=== PATIENT | male | born 1950 | race Caucasian/White ===

== ENCOUNTER 2019-05-16 14:26 | Inpatient (IN) ==
[2019-05-16] MEDS ORDERED: SODIUM CHLORIDE 0.9% 1000ML 1,000 ML IV SCH (14:45)
[2019-05-16 14:51] LABS: Basophils # (auto) 0.03 K/uL (0-0.2); Basophils % (auto) 0.3 %; Eosinophils # (auto) 0.09 K/uL (0-0.5); Eosinophils % (auto) 0.9 %; Hematocrit (blood only) 46.6 % (42-52); Hemoglobin 15.9 g/dL (14.0-18.0); Immature Granulocytes # (auto) 0.02 K/uL (0.00-0.02); Immature Granulocytes % (auto) 0.2 %; Lymphocytes # (auto) 1.72 K/uL (1.2-3.4); Lymphocytes % (auto) 17.2 %; Mean Corpuscular Hemoglobin 31.9 pg (25-34); Mean Corpuscular Hgb Conc 34.1 g/dL (32-36); Mean Corpuscular Volume 93.4 fL (80-100); Mean Platelet Volume 9.5 fL (7.4-10.4); Monocytes # (auto) 0.66 K/uL (0.11-0.59); Monocytes % (auto) 6.6 %; Neutrophils % (auto) 74.8 %; Platelet Count 200 K/uL (130-400); RDW Coefficient of Variation 13.2 % (11.5-14.5); RDW Standard Deviation 44.9 fL (36.4-46.3); Red Blood Count 4.99 M/uL (4.7-6.1); White Blood Count 10.02 K/uL (4.8-10.8)
[2019-05-16 15:00] LABS: INR 1.8 (0.9-1.1); Partial Thromboplastin Ratio 1.3; Partial Thromboplastin Time 35.1 Seconds (21.0-31.0); Prothrombin Time 17.3 Seconds (9.0-12.0)
--- NOTE | 2019-05-16 15:00 | XRay Report ---
XR chest 1V portable CLINICAL HISTORY: aphasia COMPARISON STUDY: Chest February 12, 2008. FINDINGS: Lung volumes are normal. There is no pneumothorax or pleural effusion. There is no evidence for pulmonary edema. Mild cardiomegaly is noted. Mediastinal widening is unchanged. Patient is rotat ed. There is mild lower lung interstitial thickening. This probably chronic. IMPRESSION: Mild lower lung interstitial thickening which is probably chronic. No definite acute fin dings. ACT 112: Negative or not required by law. Electronically signed by: Jairo Cobb M.D. 05/16/2019 2:58 PM
[2019-05-16] MEDS ORDERED: OPTIRAY 320 125ml IV PRN (15:01)
[2019-05-16 15:03] LABS: iSTAT Creatinine 1.6 mg/dl (0.6-1.3); iSTAT Hemoglobin 15.6 g/dl (14.0-18.0); iSTAT Ionized Calcium 1.16 mmol/l (1.12-1.32); iSTAT Potassium 4.4 mEq/L (3.3-5.0)
[2019-05-16 15:06] LABS: Alanine Aminotransferase 30 U/L (12-78); Albumin Level 4.3 gm/dl (3.4-5.0); Aspartate Aminotransferase 16 U/L (15-37); BUN Creatinine Ratio 11.4 (10-20); Blood Urea Nitrogen 18 mg/dl (7-18); Calcium 9.4 mg/dl (8.5-10.1); Carbon Dioxide 29 mmol/L (21-32); Chloride 106 mmol/L (98-107); Creatinine Clr Calc Pharmacy 62.5 ml/min; Est GFR (African American) 50.6; Est GFR (Non-African American) 43.7; Glucose 123 mg/dl (70-99); Magnesium 2.4 mg/dl (1.8-2.4); Potassium 4.5 mmol/L (3.5-5.1); Sodium 141 mmol/L (136-145)
[2019-05-16 15:11] LABS: Albumin Globulin Ratio 1.2 (0.9-2); Alkaline Phosphatase 106 U/L (45-117); Bilirubin,Total 0.7 mg/dl (0.2-1); Globulin 3.5 gm/dl (2.5-4.0); Total Protein 7.8 gm/dl (6.4-8.2); Troponin I < 0.015 ng/ml (0-0.045)
--- NOTE | 2019-05-16 15:19 | CT Scan Report ---
UNENHANCED CT OF THE BRAIN; CT ANGIOGRAM OF THE BRAIN; CT ANGIOGRAM OF THE NECK CLINICAL HISTORY: Strokelike symptoms. COMPARISON STUDY: No priors. TECHNIQUE: Unenhanced axial CT scan of the brain is performed. Subsequently, following the IV adminis tration of 115 of [address] 320, CT angiogram of the head and neck was performed from the aortic arch t o the vertex. Images are reviewed in the axial, sagittal, and coronal planes. 3-D MIPS images are cre ated and assessed. IV contrast was administered without complication. All measurements were calculate d based on NASCET criteria. A dose lowering technique was utilized adhering to the principles of ALA RA. CT DOSE: 1714.22 mGy.cm FINDINGS: Brain parenchyma: The brain parenchyma is normal in appearance. There is no hemorrhage, mass effect, or evidence of acute territorial ischemia by CT criteria. There is no evidence of enhancing mass lesi on on the angiogram phase images. The ventricles, sulci, and cisterns are normal in configuration. Gr ay-white matter differentiation is preserved. No extra-axial fluid collection is seen. Thoracic aorta: Visualized portions of the thoracic aorta are normal in caliber. The aortic arch demo nstrates standard 3-vessel anatomy. Right carotid arterial system: The right common carotid artery is widely patent. There is less than 5 0% luminal narrowing at the origin of the right internal carotid artery secondary to soft plaque. Rem ainder of the right internal carotid artery is patent, as is the right external carotid artery. Left carotid arterial system: The left common carotid artery is widely patent, as are the left healthcare administration internship al and external carotid arteries. Mild atherosclerotic plaque is noted in the carotid bulb. Vertebral arteries: There is high-grade stenosis at the origin of the right vertebral artery. The delbert tebral arteries are otherwise patent bilaterally. The left side is dominant. Subclavian arteries: Widely patent bilaterally. Intracranial vasculature: The internal carotid arteries are patent at the skull base, as are the ante rior and middle cerebral arteries bilaterally. The vertebrobasilar system and posterior cerebral alexis donald are widely patent. The vertebral arteries are codominant. There is no aneurysm, high-grade steno sis, or focal vessel cut off seen throughout the intracranial circulation. Jugular veins: Patent bilaterally. Dural sinuses: Patent. Lung apices: Partially visualized upper lobe lung parenchyma appears clear. Soft tissues: The visualized pharyngeal soft tissues are normal in appearance noting angiographic pha se technique. The oropharyngeal airway appears widely patent. The salivary and thyroid glands are nor mal in appearance. No cervical lymphadenopathy is seen. Skeletal structures: Skeletal structures are osteopenic. The calvarium appears intact. The cervical s pine is maintained noting multilevel spondylosis with calcification of the posterior longitudinal lig ament. No lytic or blastic lesion is identified. Sinuses and mastoids: The paranasal sinuses are clear. The mastoid air cells are well pneumatized. Soft tissues: A 1.8 cm sebaceous cyst is noted in the suboccipital scalp. IMPRESSION: 1. There is no hemorrhage, mass effect, or evidence of acute territorial ischemia by CT criteria. 2. Unremarkable CT angiogram of the brain. 3. There is high-grade stenosis at the origin of the right vertebral artery. The vertebral arteries a re otherwise patent bilaterally. 4. There is less than 50% stenosis at the origin of the right internal carotid artery secondary to so ft plaque. ACT 112: Negative or not required by law. Electronically signed by: Dax Acharya M.D. 05/16/2019 3:18 PM
--- NOTE | 2019-05-16 17:33 | History & Physical Report ---
Date of Service May 16, 2019 Assessment & Plan (1) Stroke-like symptoms: Pt is 69 y/o M with PMH HTN, obesity, recurrent PE on Coumadin, sleep apnea presented to ER with c/o 2 episodes of expressive aphasia, once occurring yesterday after workout and occurring today after workout lasting approx 1 hour. In ER vitals stable. No current symptoms. No significant electrolyte abnormality. CT HEAD, CTA HEAD, CTA NECK: 1. There is no hemorrhage, mass effect, or evidence of acute territorial ischemia by CT criteria. 2. Unremarkable CT angiogram of the brain. 3. There is high-grade stenosis at the origin of the right vertebral artery. The vertebral arteries are otherwise patent bilaterally. 4. There is less than 50% stenosis at the origin of the right internal carotid artery secondary to soft plaque. DDX: TIA, CVA -Tele to monitor for arrhythmias -Lipid panel, A1C, TSH in am -MRI brain -Echo with bubble study -PT/OT consult -Start statin -Currently on Coumadin. INR: 1.8. Adjust Coumadin and monitor INR -Neurology consult -Will defer starting aspirin to neurology since pt on Coumadin (2) Recurrent pulmonary embolism: On Coumadin. Last PE in 2007 and on Coumadin since INR: 1.8 -Adjust Coumadin accordingly -Monitor INR (3) HTN (hypertension): Stable -Continue enalapril (4) ASHUTOSH (obstructive sleep apnea): Not on CPAP DVT Prophylaxis -On Coumadin Full Code as per discussion with pt Follows with Dr Elver Canada for routine care Pt was seen and care coordinated with Dr Godinez. See addendum History of Present Illness Chief Complaint: Speech difficulty Primary Care Provider: Elver Canada DO Pt is 69 y/o M with PMH HTN, obesity, recurrent PE on Coumadin, sleep apnea presented to ER with c/o speech difficulty. Patient reports yesterday around noon he had difficulty with his speech. Reports went to the gym and walked 1.5 miles on treadmill and on his way home he was singing and had trouble speaking some words and trouble remembering song lyrics. This lasted approx 1 hour and self resolved. Denies any other associated symptoms. Today he also went to gym around and walked 2 miles on 2% incline on treadmill and finished around noon. Corinna fine during workout and without symptoms. States had another episode of speech difficulty today around 2 PM which lasted approximately 1 hour. Reports was reading a story to his and was noted to have trouble getting words out and some words were garbled. Also reports had headache around left orbit which has since resolved. States took two 81mg aspirin prior to ER arrival. Denies fever/chills, diaphoresis, N/V/D/C, dizziness, syncope, vision changes, neck pain, CP, SOB, orthopnea, palpitations, cough, sore throat, choking, otalgia, rhinorrhea, abdominal pain, paresthesias, weakness, extremity weakness, facial drooping, extremity edema, rashes, urinary symptoms. Allergies Allergy/AdvReac Type Severity Reaction Status Date / Time No Known Allergies Allergy Verified 05/16/19 15:32 Home Medications Home Medications Medication Instructions Recorded Confirmed Type enalapril maleate 20 mg PO QAM 05/16/19 05/16/19 History folic acid 400 mcg PO QAM 05/16/19 05/16/19 History latanoprost 1 drp OPB HS 05/16/19 05/16/19 History cyphwrabrxfq-rufkoieo-awyhfo 1 tab PO QAM 05/16/19 05/16/19 History [Multivitamin 50 Plus] warfarin See Rx Instructions .ROUTE .COMPLEX 05/16/19 05/16/19 History Past Med/Surg History Medical History (Updated 05/16/19 @ 17:48 by Vianey Kay PA-C) Chronic anticoagulation DVT (deep venous thrombosis) HTN (hypertension) Obesity ASHUTOSH (obstructive sleep apnea) Recurrent pulmonary embolism Surgical History (Updated 05/16/19 @ 18:05 by Vianey Kay PA-C) Hx of tonsillectomy S/P IVC filter Family History Other Family history non-contributory Social History (Updated 05/16/19 @ 17:42 by Vianey Kay PA-C) Preferred Language: Turkmen Communication Ability: Effective 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 Beliefs That Will Affect Care: None Current Living Situation: Spouse Other Information That Helps Us Care for You: No Feels Safe at Home: Yes Safety Concerns: Feels Safe At This Time Smoking Status: Former smoker Smoking End Date: 40 years ago ; Hx Alcohol Use: No Hx Substance Use: No Review of Systems Review of Systems: All systems reviewed & are unremarkable except as noted in HPI & below Physical Exam Physical Exam: General: no distress, overweight Head: normocephalic, atraumatic Eyes: PERRL, EOM's intact, no nystagmus, conjunctiva non-injected, anicteric ENT: normal inspection external ears, nose, mucous membranes moist Neck: supple, trachea midline, non-tender Lungs: clear, no respiratory distress, no wheezing/rhonchi/rales CV: RRR, no murmur, no JVD, no pretibial edema Abd: normal BS, soft, non-tender Ext: no cyanosis, no calf tenderness Neuro: A&O x 3, normal affect, Facial sensation is intact and symmetric, face is strong and symmetric, Hearing grossly intact, Soft palate elevates symmetrically, no dysarthria, Shoulder shrug intact, Tongue is midline, normal movement, no fasciculations. Muscle tone normal. Strength 5/5 throughout Skin: warm, dry Results & Data Vital Signs (Past 12 Hours) Vital Signs Temp Pulse Pulse Resp BP BP Pulse Ox 05/16/19 16:01 83 15 97 05/16/19 16:00 83 15 135/67 96 05/16/19 15:31 79 13 95 05/16/19 15:30 81 12 134/71 93 05/16/19 15:27 84 20 139/72 96 05/16/19 15:25 81 18 139/72 96 05/16/19 15:09 83 22 97 05/16/19 14:46 87 16 96 05/16/19 14:43 87 18 166/73 H 96 05/16/19 14:29 36.7 C 95 H 20 173/90 H 96 Laboratory Results Short CBC 05/16/19 05/16/19 Range/Units Unknown Unknown WBC 10.02 (4.8-10.8) K/uL Hgb 15.9 (14.0-18.0) g/dL Hct 46.6 (42-52) % Plt Count 200 (130-400) K/uL Glucose 123 H (70-99) mg/dl BMP 05/16/19 Unknown Sodium 141 Potassium 4.5 Chloride 106 Carbon Dioxide 29 BUN 18 Creatinine 1.58 H Glucose 123 H Calcium 9.4 Cardiac Enzymes 05/16/19 Range/Units Unknown Troponin I < 0.015 (0-0.045) ng/ml Liver Function 05/16/19 Range/Units Unknown Total Bilirubin 0.7 (0.2-1) mg/dl AST 16 (15-37) U/L ALT 30 (12-78) U/L Alkaline Phosphatase 106 (45-117) U/L Albumin 4.3 (3.4-5.0) gm/dl Diagnostic Findings CT HEAD, CTA HEAD, CTA NECK: IMPRESSION: 1. There is no hemorrhage, mass effect, or evidence of acute territorial ischemia by CT criteria. 2. Unremarkable CT angiogram of the brain. 3. There is high-grade stenosis at the origin of the right vertebral artery. The vertebral arteries are otherwise patent bilaterally. 4. There is less than 50% stenosis at the origin of the right internal carotid artery secondary to soft plaque. CXR: IMPRESSION: Mild lower lung interstitial thickening which is probably chronic. No definite acute findings. ECG Additional Comments: Read by cardiology: Poor data quality, interpretation may be adversely affected Normal sinus rhythm Left axis deviation Non-specific intra-ventricular conduction delay Abnormal ECG When compared with ECG of 12-FEB-2008 07:06, QRS duration has increased T wave inversion no longer evident in Inferior leads Confirmed by Arron Lynn ([id number]) on 05/16/2019 3:16:10 PM Code Status & VTE Plan VTE Prophylaxis Plan VTE Prophylaxis will be ordered: Yes Supervising Physician Co-Signing Physician Notes Pt was seen and examined. Agreed with Vianey BRADLEY exam, assessment and plan. 69 y/o M with PMH HTN, obesity, recurrent PE on Coumadin, sleep apnea presented to ER with c/o speech difficulty. Pt said that yesterday while coming from the Gym, he said that he could not remember the oscar of a song that he knew very well, then he developed difficulty to speak where he was not able to express himself. He said that today he had the similar symptoms today. Denies any numbne ss, weakness, blurry vision, chest pain and SOB. CT head and CTA head/brain done in the ER showed no hemorrhage, mass effect, or evidence of acute territorial ischemia; high-grade stenosis at the origin of the right vertebral artery. INR 1.8 today. Denies missing any coumadin dose. Will get a MRI of the brain. Will consult neurology. PT/OT eval. Will get an ECHO. Continue neuro check. Will monitor closely. MD Herbert
--- NOTE | 2019-05-16 17:41 | Emergency Department Note ---
Entered by Jake Ardon acting as a scribe for Mike Tavera DO History of Present Illness General Chief complaint: Stroke/CVA Symptoms Stated complaint: TROUBLE SPEAKING, WORRIED ABOUT STROKE Time Seen by Provider: 05/16/19 14:35 Source: patient History of Present Illness Provider complaint: Speech impairments Onset (ago): day(s) 1 Location: head Pain Consistency: + intermittent Maximum Pain Intensity: 2 Current Pain Intensity: 2 Relieved By: + none Associated symptoms: + headaches The patient is a 69 year old male who presents to the Emergency Room with complaints of intermittent speech impairment that first occurred yesterday around lunch time. The patient reports he had trouble saying the words that he was reading and after about an hour or two it resolved. The patient adds that today around lunch time he developed a headache behind his left eye and started to have similar speech difficulties as yesterday. The patient currently still has a slight headache which he rates a 2/10. Per his , the patient's speech is close to baseline but slightly slower. The patient relates that he has never had symptoms like this before. The patient has no ambulatory difficulties and was able to go to the gym this morning. The patient mentioned that prior to arrival he took 2 baby aspirin. The patient is on Coumadin for a history of DVT. Home Medications Home Medications Medication Instructions Recorded Confirmed Type enalapril maleate 20 mg PO QAM 05/16/19 05/16/19 History folic acid 400 mcg PO QAM 05/16/19 05/16/19 History latanoprost 1 drp OPB HS 05/16/19 05/16/19 History kowkmkduqnvf-exbalhgo-anszpn 1 tab PO QAM 05/16/19 05/16/19 History [Multivitamin 50 Plus] warfarin See Rx Instructions .ROUTE .COMPLEX 05/16/19 05/16/19 History Allergies Allergy/AdvReac Type Severity Reaction Status Date / Time No Known Allergies Allergy Verified 05/16/19 15:32 Past Med/Surg History Medical History DVT (deep venous thrombosis) Family History Other Family history non-contributory Social History Preferred Language: Paraguayan Feels Safe at Home: Yes Smoking Status: Former smoker Review of Systems See HPI for pertinent positives & negatives. and A total of 10 systems reviewed and were otherwise negative Physical Exam Vital Signs Vital Signs - 24 hr 05/16/19 14:29 05/16/19 14:43 05/16/19 14:46 Temperature 36.7 C Temperature Source Oral Pulse Rate 95 H 87 87 Pulse Rate [Apical] Pulse Rate from SpO2 Sensor 87 87 Pulse Rhythm Regular Pulse Rhythm [Apical] Pulse Strength Normal Pulse Strength [Apical] Respiratory Rate 20 18 16 Respiratory Effort / Characteristics Non-Labored Spontaneous Respiratory Depth Normal Respiratory Pattern Regular Blood Pressure 173/90 H 166/73 H Blood Pressure [Left Arm] Blood Pressure Mean 117 123 Blood Pressure Mean [Left Arm] Blood Pressure Position Sitting Blood Pressure Position [Left Arm] Pulse Oximetry 96 96 96 Oxygen Delivery Method Room Air Sepsis Recent Fever Within 48 Hours No Sepsis New/Unexplained Change in Mental Status No Sepsis Action Taken by Nursing No Action Required 05/16/19 15:09 05/16/19 15:25 05/16/19 15:27 Temperature Temperature Source Pulse Rate 83 81 Pulse Rate [Apical] 84 Pulse Rate from SpO2 Sensor 83 82 Pulse Rhythm Pulse Rhythm [Apical] Regular Pulse Strength Pulse Strength [Apical] Normal Respiratory Rate 22 18 20 Respiratory Effort / Characteristics Non-Labored Spontaneous Respiratory Depth Normal Respiratory Pattern Regular Blood Pressure 139/72 Blood Pressure [Left Arm] 139/72 Blood Pressure Mean 91 Blood Pressure Mean [Left Arm] 94 Blood Pressure Position Blood Pressure Position [Left Arm] Sitting Pulse Oximetry 97 96 96 Oxygen Delivery Method Room Air Sepsis Recent Fever Within 48 Hours Sepsis New/Unexplained Change in Mental Status Sepsis Action Taken by Nursing 05/16/19 15:30 05/16/19 15:31 05/16/19 16:00 Temperature Temperature Source Pulse Rate 81 79 83 Pulse Rate [Apical] Pulse Rate from SpO2 Sensor 81 79 81 Pulse Rhythm Pulse Rhythm [Apical] Pulse Strength Pulse Strength [Apical] Respiratory Rate 12 13 15 Respiratory Effort / Characteristics Respiratory Depth Respiratory Pattern Blood Pressure 134/71 135/67 Blood Pressure [Left Arm] Blood Pressure Mean 90 88 Blood Pressure Mean [Left Arm] Blood Pressure Position Blood Pressure Position [Left Arm] Pulse Oximetry 93 95 96 Oxygen Delivery Method Sepsis Recent Fever Within 48 Hours Sepsis New/Unexplained Change in Mental Status Sepsis Action Taken by Nursing 05/16/19 16:01 Temperature Temperature Source Pulse Rate 83 Pulse Rate [Apical] Pulse Rate from SpO2 Sensor 84 Pulse Rhythm Pulse Rhythm [Apical] Pulse Strength Pulse Strength [Apical] Respiratory Rate 15 Respiratory Effort / Characteristics Respiratory Depth Respiratory Pattern Blood Pressure Blood Pressure [Left Arm] Blood Pressure Mean Blood Pressure Mean [Left Arm] Blood Pressure Position Blood Pressure Position [Left Arm] Pulse Oximetry 97 Oxygen Delivery Method Sepsis Recent Fever Within 48 Hours Sepsis New/Unexplained Change in Mental Status Sepsis Action Taken by Nursing GENERAL: Patient is awake, alert, and in no acute distress.Patient is resting comfortably and showing no signs of anxiety EYES: The conjunctivae are clear. The pupils are round and reactive. EARS, NOSE, MOUTH AND THROAT: The nose is without any evidence of any deformity. Mucous membranes are moist.Tongue is midline NECK: The neck is nontender and supple. RESPIRATORY: Normal respiratory effort is noted. There is no evidence of wheezing rhonchi or rales to auscultation. CARDIOVASCULAR: Regular rate and rhythm noted. There no murmurs rubs or gallops normal S1 normal S2 GASTROINTESTINAL: The abdomen is soft. Bowel sounds are present in all quadrants. Abdomen is nontender. MUSCULOSKELETAL/EXTREMITIES: There is no evidence of gross deformity. Full range of motion is noted in the hips and shoulders. SKIN: There is no obvious evidence of any rash. There are no petechiae, pallor or cyanosis noted. NEUROLOGIC: Patient is awake alert and oriented x3. Strength is symmetric. Spee ch is clear. No facial droop noted. Course Course 1436: Past medical records reviewed. The patient was evaluated in room B01, and a complete history and physical examination were performed. 1618: I reevaluated the patient and his condition has not changed. I updated him and his on test results. We also discussed the treatment plan and they are agreeable. 1637: I discussed the patient's case with Vianey WEIR who is under Dr. Herbert Parker. They agreed to accept the patient for further evaluation. Consultations Consultation #1: I discussed the patient's case with Vianey WEIR who is under Dr. Herbert Parker. They agreed to accept the patient for further evaluation. Time: 16:37 Administered Medications Sodium Chloride (Nss 1000ml) 1,000 mls @ 50 mls/hr IV .Q20H RUPESH Stop: 01/30/20 14:44 Last Admin: 05/16/19 14:49 Dose: 50 mls/hr Documented by: [id number] Ioversol (Optiray 320 125ml) 115 ml IV ONCE PRN PRN Reason: Interaction Checking Stop: 05/20/19 15:00 Last Admin: 05/16/19 15:01 Dose: 115 ml Documented by: [id number] Medical Decision Making Differential Diagnosis Differential Diagnosis includes but is not limited to ischemic Stroke, hemorrhagic stroke, bells palsy, mass, neoplasm, migraine headache, seizure, subarachnoid hemorrhage, TIA, and transient global amnesia. Medical Records Attestation: I reviewed the patient's medical records. Home Medications Current Medication List: was personally reviewed by me Laboratory Data Attestation: I reviewed the patient's lab results. Result diagrams: 05/16/19 Unknown 05/16/19 Unknown Lab Results 05/16/19 05/16/19 05/16/19 Range/Units 14:46 14:47 Unknown WBC 10.02 (4.8-10.8) K/uL RBC 4.99 (4.7-6.1) M/uL Hgb 15.9 (14.0-18.0) g/dL POC Hgb 15.6 (14.0-18.0) g/dl Hct 46.6 (42-52) % POC Hct 46 (42-52) % MCV 93.4 (80-100) fL MCH 31.9 (25-34) pg MCHC 34.1 (32-36) g/dL RDW Std Deviation 44.9 (36.4-46.3) fL RDW Coeff of Chace 13.2 (11.5-14.5) % Plt Count 200 (130-400) K/uL MPV 9.5 (7.4-10.4) fL Immature Gran % (Auto) 0.2 % Neut % (Auto) 74.8 % Lymph % (Auto) 17.2 % Maries % (Auto) 6.6 % Eos % (Auto) 0.9 % Baso % (Auto) 0.3 % Immature Gran # (Auto) 0.02 (0.00-0.02) K/uL Neut # (Auto) 7.50 H (1.4-6.5) K/uL Lymph # (Auto) 1.72 (1.2-3.4) K/uL Maries # (Auto) 0.66 H (0.11-0.59) K/uL Eos # (Auto) 0.09 (0-0.5) K/uL Baso # (Auto) 0.03 (0-0.2) K/uL PT (9.0-12.0) Seconds INR (0.9-1.1) APTT (21.0-31.0) Seconds PTT Ratio POC Sodium 141 (135-144) mEq/L Sodium (136-145) mmol/L POC Potassium 4.4 (3.3-5.0) mEq/L Potassium (3.5-5.1) mmol/L POC Chloride 104 (101-112) mEq/L Chloride (98-107) mmol/L Carbon Dioxide (21-32) mmol/L POC Total CO2 27 (24-31) mEq/l Anion Gap (3-11) POC Anion Gap 15.0 L (16-25) mmol/L POC BUN 18 (7-18) mg/dl BUN (7-18) mg/dl Creatinine (0.6-1.4) mg/dl POC Creatinine 1.6 H (0.6-1.3) mg/dl Est Cr Clr Drug Dosing ml/min Est GFR ( Amer) Est GFR (Non-Af Amer) BUN/Creatinine Ratio (10-20) Glucose (70-99) mg/dl POC Glucose 119 H (70-99) POC Glucose (other) 119 H (70-99) mg/dl Calcium (8.5-10.1) mg/dl POC Ioniz Calcium Gee 1.16 (1.12-1.32) mmol/l Magnesium (1.8-2.4) mg/dl Total Bilirubin (0.2-1) mg/dl AST (15-37) U/L ALT (12-78) U/L Alkaline Phosphatase (45-117) U/L Troponin I (0-0.045) ng/ml Total Protein (6.4-8.2) gm/dl Albumin (3.4-5.0) gm/dl Globulin (2.5-4.0) gm/dl Albumin/Globulin Ratio (0.9-2) 12/31/19 12/31/19 Range/Units Unknown Unknown WBC (4.8-10.8) K/uL RBC (4.7-6.1) M/uL Hgb (14.0-18.0) g/dL POC Hgb (14.0-18.0) g/dl Hct (42-52) % POC Hct (42-52) % MCV (80-100) fL MCH (25-34) pg MCHC (32-36) g/dL RDW Std Deviation (36.4-46.3) fL RDW Coeff of Chace (11.5-14.5) % Plt Count (130-400) K/uL MPV (7.4-10.4) fL Immature Gran % (Auto) % Neut % (Auto) % Lymph % (Auto) % Maries % (Auto) % Eos % (Auto) % Baso % (Auto) % Immature Gran # (Auto) (0.00-0.02) K/uL Neut # (Auto) (1.4-6.5) K/uL Lymph # (Auto) (1.2-3.4) K/uL Maries # (Auto) (0.11-0.59) K/uL Eos # (Auto) (0-0.5) K/uL Baso # (Auto) (0-0.2) K/uL PT 17.3 H (9.0-12.0) Seconds INR 1.8 H (0.9-1.1) APTT 35.1 H (21.0-31.0) Seconds PTT Ratio 1.3 POC Sodium (135-144) mEq/L Sodium 141 (136-145) mmol/L POC Potassium (3.3-5.0) mEq/L Potassium 4.5 (3.5-5.1) mmol/L POC Chloride (101-112) mEq/L Chloride 106 (98-107) mmol/L Carbon Dioxide 29 (21-32) mmol/L POC Total CO2 (24-31) mEq/l Anion Gap 6.0 (3-11) POC Anion Gap (16-25) mmol/L POC BUN (7-18) mg/dl BUN 18 (7-18) mg/dl Creatinine 1.58 H (0.6-1.4) mg/dl POC Creatinine (0.6-1.3) mg/dl Est Cr Clr Drug Dosing 62.5 ml/min Est GFR ( Amer) 50.6 Est GFR (Non-Af Amer) 43.7 BUN/Creatinine Ratio 11.4 (10-20) Glucose 123 H (70-99) mg/dl POC Glucose (70-99) POC Glucose (other) (70-99) mg/dl Calcium 9.4 (8.5-10.1) mg/dl POC Ioniz Calcium Gee (1.12-1.32) mmol/l Magnesium 2.4 (1.8-2.4) mg/dl Total Bilirubin 0.7 (0.2-1) mg/dl AST 16 (15-37) U/L ALT 30 (12-78) U/L Alkaline Phosphatase 106 (45-117) U/L Troponin I < 0.015 (0-0.045) ng/ml Total Protein 7.8 (6.4-8.2) gm/dl Albumin 4.3 (3.4-5.0) gm/dl Globulin 3.5 (2.5-4.0) gm/dl Albumin/Globulin Ratio 1.2 (0.9-2) Imaging Data Radiologist's Impression: Radiology results as stated below per my review and the radiologist's interpretation: XR chest 1V portable CLINICAL HISTORY: aphasia COMPARISON STUDY: Chest February 12, 2008. FINDINGS: Lung volumes are normal. There is no pneumothorax or pleural effusion. There is no evidence for pulmonary edema. Mild cardiomegaly is noted. Mediastinal widening is unchanged. Patient is rotated. There is mild lower lung interstitial thickening. This probably chronic. IMPRESSION: Mild lower lung interstitial thickening which is probably chronic. No definite acute findings. ACT 112: Negative or not required by law. Electronically signed by: Jairo Cobb M.D. 05/16/2019 2:[address] OF THE BRAIN; CT ANGIOGRAM OF THE BRAIN; CT ANGIOGRAM OF THE NECK CLINICAL HISTORY: Strokelike symptoms. COMPARISON STUDY: No priors. TECHNIQUE: Unenhanced axial CT scan of the brain is performed. Subsequently, following the IV administration of 115 of Optiray 320, CT angiogram of the head and neck was performed from the aortic arch to the vertex. Images are reviewed in the axial, sagittal, and coronal planes. 3-D MIPS images are created and assessed. IV contrast was administered without complication. All measurements were calculated based on NASCET criteria. A dose lowering technique was utilized adhering to the principles of ALARA. CT DOSE: 1714.22 mGy.cm FINDINGS: Brain parenchyma: The brain parenchyma is normal in appearance. There is no hemorrhage, mass effect, or evidence of acute territorial ischemia by CT criteria. There is no evidence of enhancing mass lesion on the angiogram phase images. The ventricles, sulci, and cisterns are normal in configuration. Morrison- white matter differentiation is preserved. No extra-axial fluid collection is seen. Thoracic aorta: Visualized portions of the thoracic aorta are normal in caliber. The aortic arch demonstrates standard 3-vessel anatomy. Right carotid arterial system: The right common carotid artery is widely patent. There is less than 50% luminal narrowing at the origin of the right internal carotid artery secondary to soft plaque. Remainder of the right internal carotid artery is patent, as is the right external carotid artery. Left carotid arterial system: The left common carotid artery is widely patent, as are the left internal and external carotid arteries. Mild atherosclerotic plaque is noted in the carotid bulb. Vertebral arteries: There is high-grade stenosis at the origin of the right vertebral artery. The vertebral arteries are otherwise patent bilaterally. The left side is dominant. Subclavian arteries: Widely patent bilaterally. Intracranial vasculature: The internal carotid arteries are patent at the skull base, as are the anterior and middle cerebral arteries bilaterally. The vertebrobasilar system and posterior cerebral arteries are widely patent. The vertebral arteries are codominant. There is no aneurysm, high-grade stenosis, or focal vessel cut off seen throughout the intracranial circulation. Jugular veins: Patent bilaterally. Dural sinuses: Patent. Lung apices: Partially visualized upper lobe lung parenchyma appears clear. Soft tissues: The visualized pharyngeal soft tissues are normal in appearance noting angiographic phase technique. The oropharyngeal airway appears widely patent. The salivary and thyroid glands are normal in appearance. No cervical lymphadenopathy is seen. Skeletal structures: Skeletal structures are osteopenic. The calvarium appears intact. The cervical spine is maintained noting multilevel spondylosis with calcification of the posterior longitudinal ligament. No lytic or blastic lesion is identified. Sinuses and mastoids: The paranasal sinuses are clear. The mastoid air cells are well pneumatized. Soft tissues: A 1.8 cm sebaceous cyst is noted in the suboccipital scalp. IMPRESSION: 1. There is no hemorrhage, mass effect, or evidence of acute territorial ischemia by CT criteria. 2. Unremarkable CT angiogram of the brain. 3. There is high-grade stenosis at the origin of the right vertebral artery. The vertebral arteries are otherwise patent bilaterally. 4. There is less than 50% stenosis at the origin of the right internal carotid artery secondary to soft plaque. ACT 112: Negative or not required by law. Electronically signed by: Dax Acharya M.D. 05/16/2019 3:18 PM ECG Data Attestation: I personally reviewed and interpreted this ECG as follows: Indication: + other (Neuro symptoms) Rate (beats per minute): 88 Rhythm: + normal sinus ECG Intervals/blocks: + Left bundle branch block ECG Findings: no PACs and no PVCs Comparison ECG Date: from (02/12/08) Change: no significant change Blood Pressure Blood Pressure Findings: Elevated blood pressure Blood Pressure Disposition: further management by hospitalist MDM Narrative The patient is a 69-year-old male who presented to the emergency department for an evaluation of strokelike symptoms. The patient began having symptoms yesterday of stuttering speech. He also had difficulty with expressive aphasia. The patient had symptoms witnessed by his significant other and she describes expressive aphasia very well. The symptoms resolved spontaneously yesterday but returned today after him and his went for a workout at the gym. It was not an overly strenuous workout but the patient started having an episode where he was trying to describe something to his significant other but had expressive aphasia. The symptoms also resolved prior to arrival although his thought he still had some symptoms when he was initially evaluated by myself. I di scussed the patient's laboratory and radiographic studies with him. The patient was not found to have any acute abnormality on CT of the brain. CT angiography did not show any large vessel occlusion. Because of his findings and waxing and waning of TIA symptoms I do feel the patient may be at high risk. For this reason I discussed his case with the on-call [facility] hospitalist group. They have agreed to evaluate the patient in the emergency department for further management and disposition. The patient is currently taking Coumadin. Impression & Plan TIA (transient ischemic attack), Aphasia Discharge Plan Visit Data Chief Complaint: Stroke/CVA Symptoms Stated Complaint: TROUBLE SPEAKING, WORRIED ABOUT STROKE ED Provider: Liang,Mike R Discharge Problem: TIA (transient ischemic attack), Aphasia Patient Disposition: Being Evaluated by Hospitalist Forms Stand Alone Forms: My [facility] Prescriptions Prescriptions: No Action latanoprost 0.005 % drops 1 drp OPB HS RF: 0 warfarin 10 mg tablet See Rx Instructions .ROUTE .COMPLEX RF: 0 enalapril maleate 20 mg tablet 20 mg PO QAM RF: 0 folic acid 400 mcg Tablet 400 mcg PO QAM RF: 0 Multivitamin 50 Plus Tablet 1 tab PO QAM RF: 0 Referrals Referrals: Elver Canada, DO [Primary Care Provider] - The scribe's documentation has been prepared under my direction and personally reviewed by me in its entirety. I confirm that the note above accurately reflects all work, treatment, procedures, and medical decision making performed by me.
[2019-05-16] MEDS ORDERED: PHARMACIST DISCHARGE MED REC CONSULT PRN (18:50)
[2019-05-16] MEDS ORDERED: ACETAMINOPHEN 325 MG TAB PO PRN (18:50)
[2019-05-16] MEDS ORDERED: WARFARIN SOD 7.5 MG TAB PO ONE (19:30)
--- NOTE | 2019-05-16 20:38 | Magnetic Resonance Report ---
MR brain wo con HISTORY: 69 years-old Male stroke like symptoms acute strokelike symptoms COMPARISON: CT head and CTA head neck of same day TECHNIQUE: Multiplanar multisequence MRI of the brain was obtained without use of IV contrast. FINDINGS: No restricted diffusion to suggest acute or subacute infarction. There is an ovoid subcutaneous T1 hy pointense and T2 hyperintense lesion of the suboccipital superficial tissues demonstrating mildly res tricted diffusion, 1.2 x 1.0 x 1.3 cm. This may reflect a sebaceous cyst. Midline structures includin g the corpus callosum, brainstem, optic chiasm, pituitary and pineal glands appear unremarkable on th e sagittal T1 series. No cerebellar tonsillar herniation. Degenerative changes are noted about the im aged cervical spine. No acute intracranial hemorrhage, midline shift, abnormal extra-axial collection, hydrocephalus or i ntracranial mass. Mild age-related involutional changes. Moderate patchy T2/FLAIR hyperintensities ab out the white matter suggest chronic microvascular ischemic disease. Major flow voids at the level th e skull base appear patent. Mastoid air cells are clear. Paranasal sinuses are also generally clear. The skull, and orbits appear unremarkable. IMPRESSION: 1. No acute intracranial abnormality, specifically there is no evidence of acute or subacute infarct. 2. Mild age-related involutional changes with moderate chronic microvascular ischemic disease. 3. 1.3 cm superficial subcutaneous lesion of the left suboccipital tissues suggests a probable sebace ous cyst. Correlate with clinical exam. ACT 112: Negative or not required by law. The above report was generated using voice recognition software. It may contain grammatical, syntax o r spelling errors. Electronically signed by: Dejuan Clement M.D. 05/16/2019 8:37 PM
[2019-05-16] MEDS ORDERED: LATANOPROST 0.005% OP SOLN 2.5 ML BTL OPB SCH (21:00)
[2019-05-17 06:10] LABS: Hematocrit (blood only) 43.2 % (42-52); Hemoglobin 14.8 g/dL (14.0-18.0); Mean Corpuscular Hemoglobin 31.7 pg (25-34); Mean Corpuscular Hgb Conc 34.3 g/dL (32-36); Mean Corpuscular Volume 92.5 fL (80-100); Platelet Count 164 K/uL (130-400); RDW Coefficient of Variation 13.4 % (11.5-14.5); RDW Standard Deviation 44.9 fL (36.4-46.3); Red Blood Count 4.67 M/uL (4.7-6.1); White Blood Count 7.37 K/uL (4.8-10.8)
[2019-05-17 06:30] LABS: INR 1.8 (0.9-1.1); Prothrombin Time 17.5 Seconds (9.0-12.0)
[2019-05-17 06:33] LABS: BUN Creatinine Ratio 13.8 (10-20); Calcium 8.9 mg/dl (8.5-10.1); Creatinine Clr Calc Pharmacy 63.3 ml/min
--- NOTE | 2019-05-17 08:42 | Hospitalist Progress Note ---
Date of Service May 17, 2019 Assessment & Plan (1) Stroke-like symptoms: Pt is 69 y/o M with PMH HTN, obesity, recurrent PE on Coumadin, sleep apnea presented to ER with c/o 2 episodes of expressive aphasia, once occurring yesterday after workout and occurring today after workout lasting approx 1 hour. In ER vitals stable. No current symptoms. No significant electrolyte abnormality. CT HEAD, CTA HEAD, CTA NECK: 1. There is no hemorrhage, mass effect, or evidence of acute territorial ischemia by CT criteria. 2. Unremarkable CT angiogram of the brain. 3. There is high-grade stenosis at the origin of the right vertebral artery. The vertebral arteries are otherwise patent bilaterally. 4. There is less than 50% stenosis at the origin of the right internal carotid artery secondary to soft plaque. DDX: TIA, CVA -Tele to monitor for arrhythmias -Lipid panel, A1C, TSH in am -MRI brain -Echo with bubble study -PT/OT consult -Start statin -Currently on Coumadin. INR: 1.8. Adjust Coumadin and monitor INR -Neurology consult -Will defer starting aspirin to neurology since pt on Coumadin (2) Recurrent pulmonary embolism: On Coumadin. Last PE in 2007 and on Coumadin since INR: 1.8 -Adjust Coumadin accordingly -Monitor INR (3) HTN (hypertension): Stable -Continue enalapril (4) ASHUTOSH (obstructive sleep apnea): Not on CPAP DVT Prophylaxis -On Coumadin Full Code as per discussion with pt Follows with Dr Elver Canada for routine care Pt was seen and care coordinated with Dr Godinez. See addendum (5) DVT prophylaxis: Results & Data Vital Signs (Past 12 Hours) Vital Signs Temp Pulse Pulse Resp BP Pulse Ox 05/17/19 08:00 62 05/17/19 07:23 37.1 C 59 L 16 118/65 92 05/17/19 03:10 36.4 C L 80 17 144/76 H 95 05/17/19 00:00 78 05/16/19 22:40 36.9 C 79 18 138/74 95 Laboratory Results Short CBC 05/16/19 05/17/19 Range/Units Unknown 05:37 WBC 10.02 7.37 (4.8-10.8) K/uL Hgb 15.9 14.8 (14.0-18.0) g/dL Hct 46.6 43.2 (42-52) % Plt Count 200 164 (130-400) K/uL BMP 05/16/19 05/17/19 Unknown 05:37 Sodium 141 141 Potassium 4.5 4.0 Chloride 106 109 H Carbon Dioxide 29 25 BUN 18 22 H Creatinine 1.58 H 1.57 H Glucose 123 H 102 H Calcium 9.4 8.9 Cardiac Enzymes 05/16/19 Range/Units Unknown Troponin I < 0.015 (0-0.045) ng/ml Liver Function 05/16/19 Range/Units Unknown Total Bilirubin 0.7 (0.2-1) mg/dl AST 16 (15-37) U/L ALT 30 (12-78) U/L Alkaline Phosphatase 106 (45-117) U/L Albumin 4.3 (3.4-5.0) gm/dl Medications Administered Current Inpatient Medications Acetaminophen (Tylenol) 650 mg PO Q4H PRN PRN Reason: Pain or Fever Stop: 06/15/19 18:49 Atorvastatin Calcium (Lipitor) 20 mg PO [facility] Stop: 06/16/19 08:59 Last Admin: 05/17/19 07:56 Dose: 20 mg Documented by: Enalapril Maleate (Vasotec) 20 mg PO [facility] Stop: 06/16/19 08:59 Last Admin: 05/17/19 07:56 Dose: 20 mg Documented by: Folic Acid (Folvite) 400 mcg PO [facility] Stop: 06/16/19 08:59 Last Admin: 05/17/19 07:56 Dose: 400 mcg Documented by: Latanoprost (Xalatan Oph) 1 drops [facility]B [facility] Stop: 06/15/19 20:59 Last Admin: 05/16/19 20:48 Dose: 1 drops Documented by: Miscellaneous Information (Pharmacist Discharge Med Rec Consult) 1 ea N/A UD PRN PRN Reason: Consult Stop: 06/15/19 18:49 Multivitamins/Minerals (Multivitamin W/ Minerals Tab) 1 tab PO [facility] Stop: 06/16/19 08:59 Last Admin: 05/17/19 07:56 Dose: 1 tab Documented by: Warfarin Sodium (Coumadin) 10 mg PO DAILY@1600 [facility] Stop: 06/16/19 15:59
[2019-05-17] MEDS ORDERED: CEROVITE ADV FORMULA TAB PO SCH (09:00)
[2019-05-17] MEDS ORDERED: ENALAPRIL MALEATE 10 MG TAB PO SCH (09:00)
[2019-05-17] MEDS ORDERED: FOLIC ACID 400 MCG TAB PO SCH (09:00)
[2019-05-17] MEDS ORDERED: ATORVASTATIN 20 MG TAB PO SCH (09:00)
--- NOTE | 2019-05-17 14:14 | Discharge Summary ---
Date of Service May 17, 2019 Admission HPI Per Admitting Provider Pt is 69 y/o M with PMH HTN, obesity, recurrent PE on Coumadin, sleep apnea presented to ER with c/o speech difficulty. Patient reports yesterday around noon he had difficulty with his speech. Reports went to the gym and walked 1.5 miles on treadmill and on his way home he was singing and had trouble speaking some words and trouble remembering song lyrics. This lasted approx 1 hour and self resolved. Denies any other associated symptoms. Today he also went to gym around and walked 2 miles on 2% incline on treadmill and finished around noon. [place] fine during workout and without symptoms. States had another episode of speech difficulty today around 2 PM which lasted approximately 1 hour. Reports was reading a story to his and was noted to have trouble getting words out and some words were garbled. Also reports had headache around left orbit which has since resolved. States took two 81mg aspirin prior to ER arrival. Denies fever/chills, diaphoresis, N/V/D/C, dizziness, syncope, vision changes, neck pain, CP, SOB, orthopnea, palpitations, cough, sore throat, choking, otalgia, rhinorrhea, abdominal pain, paresthesias, weakness, extremity weakness, facial drooping, extremity edema, rashes, urinary symptoms. Admission Exam Per Admitting Provider General: no distress, overweight Head: normocephalic, atraumatic Eyes: PERRL, EOM's intact, no nystagmus, conjunctiva non-injected, anicteric ENT: normal inspection external ears, nose, mucous membranes moist Neck: supple, trachea midline, non-tender Lungs: clear, no respiratory distress, no wheezing/rhonchi/rales CV: RRR, no murmur, no JVD, no pretibial edema Abd: normal BS, soft, non-tender Ext: no cyanosis, no calf tenderness Neuro: A&O x 3, normal affect, Facial sensation is intact and symmetric, face is strong and symmetric, Hearing grossly intact, Soft palate elevates symmetrically, no dysarthria, Shoulder shrug intact, Tongue is midline, normal movement, no fasciculations. Muscle tone normal. Strength 5/5 throughout Skin: warm, dry Principal Diagnosis TIA Discharge Exam CONSTITUTIONAL: WNWD, vitals as above, generally well-appearing EYES: EOMI bilaterally, PERRL, normal conjunctivae, no scleral icterus ENT: MMM RESPIRATORY: clear to auscultation bilaterally, no crackles, rales or wheezes, normal respiratory effort CARDIOVASCULAR: regular rate and rhythm, S1 and 2 heard without murmurs, gallops or rubs, no JVD, no peripheral edema GASTROINTESTINAL: normal bowel sounds, soft, nontender, nondistended MUSCULOSKELETAL: strength 5/5 throughout, head is normocephalic and atraumatic SKIN: warm and dry NEUROLOGIC: No facial palsy, no dysarthria. CN 2-12 grossly intact, no sensory deficit, normal cognition, normal speech, no tremor PSYCHIATRIC: alert cooperative and oriented to person, place and time. Euthymic mood, makes good eye contact, language grossly intact, recent and remote memory grossly intact. Discharge Data Allergies Allergy/AdvReac Type Severity Reaction Status Date / Time No Known Allergies Allergy Verified 05/16/19 15:32 Consultations 05/16/19 16:38 ED Decision to Admit Stat 05/16/19 18:50 Consult Case Management - Discharge Planning Routine Consult Neurology Routine Ordered Studies 05/16/19 14:40 CT head/brain wo con Stat 05/16/19 14:41 CT angio head w con Stat CT angio neck with con Stat 05/16/19 18:50 MR brain wo con Routine Hospital Course (1) TIA (transient ischemic attack): (2) Chronic anticoagulation: (3) Recurrent pulmonary embolism: 69-year-old man was presented to the ER with 2 episodes of expressive aphasia and was admitted to the hospitalist service on telemetry out of concern for strokelike symptoms. Work-up included a CT head and a CT angiograms of the head and neck revealing no hemorrhage, mass-effect or evidence of acute ischemia. CT angiogram of the brain was unremarkable and there was a high-grade stenosis at the origin of the right vertebral artery as well as a less than 50% stenosis at the origin of the right internal carotid artery secondary to soft plaque. An MRI of the brain revealed no evidence of infarct. Echocardiogram revealed no evidence of atrial septal defect, but resolution did not allow assessment for a patent foramen ovale. There was mild concentric left ventricular hypertrophy noted with a normal right ventricular systolic function. Ejection fraction was 45 to 50% with grossly normal valves. Neurology was consulted and recommended these were possibly left hemispheric TIAs, the cause of which is uncertain. It was thought he may have some localized small vessel disease in that hemisphere, but none was evident on the resolution power available on current imaging. The right vertebral artery stenosis was not thought responsible for the issues he was presenting in terms of speech and articulation. Baby aspirin daily was recommended on the assumption that these were TIAs that occurred on admittedly slightly suboptimal doses of Coumadin (INR 1.8), but may well be due to small vessel disease and might better respond to aspirin then Coumadin in this setting. An outpatient follow-up with neurology was recommended in one month and in the interim a ZIO patch event monitor was recommended to ensure no evidence of paroxysmal atrial fibrillation which was not present on telemetry during hospital admission. At time of discharge all symptoms had resolved and he was hemodynamically stable and afebrile and tolerating p.o. He was mentating and ambulating at baseline and was considered stable for discharge with close primary care follow-up recommended. In addition to baby aspirin daily Lipitor 40 nightly was also added. Total Time Total Time Spent Total Time Spent (In Minutes): 60 Total Time Includes: Examination of the Patient, Discharge Planning, Medication Reconciliation and Communication With Other Providers Discharge Plan Discharge Items Patient Disposition: Home - Self-Care Reason For Visit: STROKE LIKE SYMPTOMS Discharge Diagnosis: TIA Condition on Discharge: Good Activity: Resume your previous activity Non-emergency contact: Primary Care Provider Call non-emergency contact if: you have any medication questions, your symptoms worsen, your pain is not controlled, your pain is worsening, your pain is unusual for you, your pain is concerning for you and you have a fever Follow-up/Referrals: Elver Canada, DO [Primary Care Provider] - Diet: Heart Healthy Addtl Attending Provider Instructions: Please take all medications as instructed on discharge list below. It is recommended that a baby aspirin be added to your regimen. This will be taken in addition to your warfarin. It is recommended that you follow-up with your primary care doctor within 1 week of discharge. This will be to ensure you are still doing well after hospital discharge. It is also recommended that you undergo an event monitor because of ZIO patch, which can be ordered at this appointment also. Someone will contact you regarding setting this up after the holiday. It is recommended that you see [facility] Neurology within 4 weeks time to monitor your progress and symptoms. Please contact their office to set up an appointment. It was a pleasure taking care of you! Please call if you have any questions or problems. You can reach a [facility] hospitalist on duty at [facility] 24 hours a day by calling [phone]. Take care of yourself. Savana Mckeon, DO [facility] Hospitalist Pending Studies at Discharge: Yes Studies:: echocardiogram Stand-Alone Forms: Medications to Prevent Stroke, My [facility], Smoking Cessation Medications and DC Order Prescriptions: New atorvastatin [Lipitor] 40 mg tablet 40 mg PO HS Qty: 30 RF: 1 aspirin 81 mg tablet,delayed release (DR/EC) 81 mg PO DAILY Qty: 90 RF: 1 Continued latanoprost 0.005 % drops 1 drp OPB HS RF: 0 warfarin 10 mg tablet See Rx Instructions .ROUTE .COMPLEX RF: 0 enalapril maleate 20 mg tablet 20 mg PO QAM RF: 0 folic acid 400 mcg Tablet 400 mcg PO QAM RF: 0 Multivitamin 50 Plus Tablet 1 tab PO QAM RF: 0 Discharge Orders: Discharge Order (Routine); Ordered 05/17/19 Ordered By: Savana Willis/Other Patient Handouts: Stroke Sx Admission Data Admit Date/Time: 05/16/19 17:31 Attending Provider: Savana Mckeon Admit Provider: Mei Godinez Primary Care Provider: Elver Canada Other Providers: Mei Godinez ; Colton Jamil Other Interventions: Discharge Summary Assessment (RN) Last Done: 05/17/19 17:09 DC Date/Time DO NOT enter until pt leaves facility: 05/17/19 17:36
[2019-05-17 15:33] VITALS: BP 136/70; TEMP 98.2; O2SAT 95
[2019-05-17] MEDS ORDERED: WARFARIN SOD 10 MG TAB PO SCH (16:00)
--- NOTE | 2019-05-17 16:23 | Consultation Report ---
DATE OF CONSULTATION: 05/17/2019 HISTORY OF PRESENT ILLNESS: Jake is 69 years old, is right handed, resides in [place] and is a patient of Dr. Elvre Canada. He was admitted yesterday after 2 events of articulatory disturbance and perhaps some neologistic pronunciation of words, the first of which occurred on Wednesday after he had been exercising at his gym and lasted about an hour without any other associated symptoms and cleared, leaving no deficits. The second event occurred yesterday at about the same time again after exercising in his gym and this one persisted for about an hour and a half, and during this time, he was able to read words, could understand spoken and written words, but could not respond without inappropriate pronunciation of words and perhaps some word substitutions, although he seemed to understand that he was making the errors. Again, there was no headache, visual disturbance, somatosensory disturbance, etc, and his who has had experience with neurologic disorders, having suffered from one herself performed what she recalls as a neurologic examination and could not find any other deficits. By the time he arrived in the Emergency Room, he had cleared completely and has remained asymptomatic since about 1:00 yesterday. He does have a history of obesity and sedentary lifestyle, which probably predisposed him to having 2 pulmonary emboli, likely due to DVT formation in his lower extremities or pelvic veins. He was worked up extensively in the past, I assume, with a standard coagulopathy pattern, was initially placed on Coumadin, did not like the idea after about a year, stopped it and then probably had another event, so he has been on it ever since 2007 and has been very presybeterian about showing up for his coagulation clinic. His INR yesterday in the clinic was low at 1.8 whereas it normally runs around 2.1-2.4 and when he arrived in the hospital, was still low. He subsequently had MRI of the brain showing no acute infarct, CT angiography showing a 75% or some form of high-grade stenosis in the right vertebral artery and no other significant findings of note other than some minor stenosis in the carotids. An echocardiographic study is pending. Laboratory workup has been unremarkable. PAST MEDICAL HISTORY: Again is positive for the obesity, which is being reduced voluntarily and by exercise and the DVT, which is currently managed with Coumadin. Other medical history in addition to the DVT and obesity includes hypertension, obstructive sleep apnea, and obviously the pulmonary emboli and the chronic anticoagulation. HOME MEDICATIONS: Include enalapril for some hypertension, folic acid, latanoprost for glaucoma, multivitamins and Coumadin. PAST SURGICAL HISTORY: He has had a T and A and an IVC filter placement. SOCIAL HISTORY: Reveals him to be . He is a nonsmoker, modest consumer of ethanol. He is retired and he has a pretty active exercise schedule on a daily basis. REVIEW OF SYSTEMS: Reveals no recent fevers, sweats, chills, weight loss, weight gain, issues related to the head, eyes, ears, nose and throat, cardiovascular, pulmonary, gastrointestinal, genitourinary, musculoskeletal, dermatologic or hematologic systems. He specifically denies any palpitations with exercise and denies any history suggestive of migraine headaches or migraine phenomenon. PHYSICAL EXAMINATION: VITAL SIGNS: The general examination performed in the Emergency Room revealed essentially normal vital signs. GENERAL: He was moderately overnourished. He did not appear to be in any distress. HEAD, EYES, EARS, NOSE, AND THROAT: Normal. NECK: Supple. No bruits were heard. No thyroid enlargement was noted. LUNGS: Clear. HEART: Had a regular rhythm. No murmurs were appreciated. ABDOMEN: Soft and nontender with no enlarged organs. EXTREMITIES: There is no calf tenderness or edema and good peripheral pulses. NEUROLOGIC: Today, neurologically he is quite intact. He is awake, alert, oriented in 3 spheres with no recent and remote memory deficits. Ocular movements are normal. Visual raman are full. Fundi are poorly seen. Gross visual acuity is about 20/25. Facial motility and strength, facial sensation, oropharyngeal and lingual movements are normal. There is no tremor, tics, choreiform activity, drift or pronation sign. Gait is normal without ataxia or spasticity or difficulty with tandem walk. Reflexes are 1+ symmetrical. Toes are downgoing. No Joy signs are seen. Muscular strength testing is normal and sensation is intact to vibration, light touch, and temperature. At this point, I suspect these were left hemispheric TIAs, the cause of which is uncertain. He could have some localized small vessel disease in that hemisphere, but none is evident on the resolution power we have on CT angiography and the right vertebral artery stenosis is certainly not really responsible for the issues he presented with in terms of speech and articulation. At this point, his INR needs to get back into the range and I think this could be done on an outpatient basis. I would add a baby aspirin per day, acting on the assumption that these are TIAs that occurred on admittedly suboptimal doses of Coumadin, but may well be due to small vessel disease and might respond better to aspirin than Coumadin in this setting. I am recommending that he be seen in our neurology clinic in about a month and in the interim potentially get a Zio patch done to be sure he does not suffer from paroxysmal atrial fibrillation. He tells me he has had this done in the past and was negative but that was about 10 years ago and I think another one now would be in order. I have discussed this plan with Dr. Mckeon, his attending physician. I think she will try to make these things happened and the arrangements will be made through our office for a return visit. BRIJESH
[2019-05-17] MEDS ORDERED: STROKE PATIENT DISCHARGE STA (17:02)
[2019-05-17 17:11] VITALS: PULSE 81
--- NOTE | 2019-05-17 19:38 | Pharmacy Report ---
Pharmacist Stroke Counseling - Date of Service May 17, 2019 - Scope: Pharmacy has been consulted to provide medication discharge counseling for this patient admitted with transient ischemic attack as per the Pharmacist Discharge Counseling for Stroke Patients Protocol. - Medications on Discharge: Home Medications Medication Instructions Recorded Confirmed Multivitamin 50 Plus 1 tab PO QAM 05/16/19 05/16/19 enalapril maleate 20 mg PO QAM 05/16/19 05/16/19 folic acid 400 mcg PO QAM 05/16/19 05/16/19 latanoprost 1 drp OPB HS 05/16/19 05/16/19 warfarin See Rx Instructions .ROUTE .COMPLEX 05/16/19 05/16/19 New Rx's Medication Instructions Recorded aspirin 81 mg PO DAILY #90 tab 05/17/19 atorvastatin [Lipitor] 40 mg PO HS #30 tab 05/17/19 - Action: The above medications, specifically ones for stroke treatment/prophylaxis, have been reviewed in detail with the patient and/or patient major account representative(s) prior to discharge. This includes indication, common adverse reactions, drug interactions, and medication administration. Medication counseling has been employed using the teach-back method to ensure understanding. - Outcome: The patient and/or patient major account representative(s) have demonstrated understanding of the medications. Please note, they are aware that the pharmacist will call them within 72 hours post-discharge to confirm that the appropriate medications are being taken and answer any further medication related questions the patient might have at that time. Contact information Individual to be contacted: Jake Hooker Phone number: [phone] Best time to call: in the afternoon, after 3pm Thank you for allowing pharmacy to be involved in the care of this patient. Please call [phone] or [phone] with any additional questions
[2019-05-18 05:58] LABS: Estimated Average Glucose 117 mg/dl; Hemoglobin A1C 5.7 % (4.5-5.6)
--- NOTE | 2019-05-19 15:19 | Pharmacy Report ---
Pharmacist Post D/C Phone Note - Phone Note: Date of phone call: May 19, 2019. Individual with whom pharmacist spoke to: ROBERTH SILVA (Bob) The following questions were reviewed during the phone call with responses listed below each: Can you tell me the medications that you are currently taking as well as when and how you take each medication? - Patient accurately listed all medications, including the two new ones When have you missed any doses of your medications? - No missed doses noted What side effects are you having from your medications, specifically, the new medications you were started on? - None noted What questions do you have about your medications? - None What problems are you having obtaining your medications? - None When is your next appointment with your primary care doctor? - 05/22/[address] Valverde. - Patient reports his next INR check is not scheduled until 06/19/19. I encouraged him to contact his Coumadin Clinic (at [facility]) to see if they would recommend an earlier appointment based on his recent (slightly) subtherapeutic INR, recent hospital stay for TIA, and possible drug-drug interaction with atorvastatin. Ok noted he would contact them. Additional comments: - No questions or concerns identified As per the Pharmacist Discharge Counseling for Stroke Patients Protocol, this phone call has been completed within 72 hours of discharge. Thank you for allowing us to be involved in the care of this patient. - Home Medications: Home Medications Medication Instructions Recorded Confirmed Multivitamin 50 Plus 1 tab PO QAM 05/16/19 05/16/19 enalapril maleate 20 mg PO QAM 05/16/19 05/16/19 folic acid 400 mcg PO QAM 05/16/19 05/16/19 latanoprost 1 drp OPB HS 05/16/19 05/16/19 warfarin See Rx Instructions .ROUTE .COMPLEX 05/16/19 05/16/19 New Rx's Medication Instructions Recorded aspirin 81 mg PO DAILY #90 tab 05/17/19 atorvastatin [Lipitor] 40 mg PO HS #30 tab 05/17/19
== END 2019-05-17 17:36 | disposition home or self-care (01) | DRG 69 ==
LOC: ED 14:26 → 2N 17:31 → SUATTDRO 17:31 → 2N 18:17